=== PATIENT | male | born 1960 | race Caucasian/White ===

== ENCOUNTER 2021-12-20 21:48 | Emergency (ER) | payer OTHER ==
[~2021-12-20] VITALS: Ht 182.9 cm; Wt 86.2 kg
[2021-12-20] MEDS ORDERED: KETOROLAC TROMETHAMINE 60 MG INJ IM ONE ×2 (23:30→23:33)
[2021-12-20] MEDS ORDERED: LIDOCAINE 1%-EPI 1:100,000 20 ML VIAL ONE (23:41)
[2021-12-21] MEDS ORDERED: TDAP DIPH,PERTUSS,TET VAC/PF 0.5 ML DISP.SYRIN IM ONE ×2 (02:05→02:15)
[2021-12-21 02:16] VITALS: BP 130/88
[2021-12-21] MEDS ORDERED: LIDOCAINE 1%-EPI 1:100,000 20 ML VIAL MC ONE (02:45)
== END 2021-12-21 02:48 | disposition home or self-care (01) ==
LOC: ER 21:50
DX: S01.512A Laceration without foreign body of oral cavity, initial encounter (principal); S01.81XA Laceration without foreign body of other part of head, initial encounter; Y04.0XXA Assault by unarmed brawl or fight, initial encounter; Y92.89 Other specified places as the place of occurrence of the external cause
CPT/HCPCS: 90715; A4663; J1885; J3490